=== PATIENT | male | born 1985 | race Hispanic/Latino ===

== ENCOUNTER 2017-06-30 17:48 | Inpatient (IN) | payer SELFPAY ==
[~2017-06-30 17:48] MED LIST: METOCLOPRAMIDE INJ 10MG/2ML VIAL (J2765) IV; NALBUPHINE HCL 10 MG/ML AMP (J2300) IV; NALOXONE INJ 0.4 MG/1 ML VIAL (J2310) IV; ONDANSETRON 4MG/2ML VIAL (J2405) IV
[2017-06-30] MEDS: NS 1,000 ML IV (18:45)
[2017-06-30] MEDS ORDERED: MORPHINE 4 MG/ML 1ML VIAL/SYRINGE (J2270) IV ×2 (18:45→20:15)
[2017-06-30 19:39] LABS: BASO % 0.4 % (0.0-1.0); EOS # 0.2 10^3/uL (0.0-0.50); EOS % 2.1 % (0.0-3.0); HEMATOCRIT 42.7 % (42.0-52.0); HEMOGLOBIN 14.5 g/dl (13.5-17.5); IMMATURE GRANULOCYTE % 0.1 % (0-3.0); LYMPH # 2.1 10^3/uL (1.5-4.5); LYMPH % 27.8 % (24.0-44.0); MEAN CORPUSCULAR VOLUME 82.6 fl (80.0-96.0); MONO # 0.4 10^3/uL (0.0-0.8); NEUTROPHILS # 4.8 10^3/uL (1.8-7.7); NEUTROPHILS % 64.6 % (36.0-66.0); PLATELET COUNT, AUTOMATED 278 10^3/uL (150-450); RED BLOOD COUNT 5.17 10^6/uL (4.30-6.10); RED CELL DISTRIBUTION WIDTH 12.8 % (11.5-14.5); WHITE BLOOD COUNT 7.5 10^3/uL (4.0-10.0)
[2017-06-30 19:51] LABS: INR 0.99; PROTHROMBIN TIME 13.2 SECONDS (12.4-14.5)
[2017-06-30 19:52] LABS: PARTIAL THROMBOPLASTIN TIME 33.7 SECONDS (26.8-37.9)
[2017-06-30] MEDS: ONDANSETRON 4MG/2ML VIAL (J2405) IV (20:06)
[2017-06-30 20:09] LABS: ALBUMIN 3.9 GM/DL (3.2-5.2); ALBUMIN/GLOBULIN RATIO 0.85 (1.00-1.93); ALKALINE PHOSPHATASE 104 U/L (45-117); ALT/SGPT 62 U/L (12-78); AMYLASE 29 U/L (25-115); ANION GAP 7 MEQ/L (8-16); AST/SGOT 37 U/L (7-37); BILIRUBIN,DIRECT 0.3 MG/DL (0.0-0.2); BILIRUBIN,TOTAL 1.4 MG/DL (0.2-1.0); BLOOD UREA NITROGEN 13 MG/DL (7-18); CALCIUM LEVEL 8.8 MG/DL (8.5-10.1); CARBON DIOXIDE LEVEL 26 MEQ/L (21-32); CHLORIDE LEVEL 108 MEQ/L (98-107); CREATININE FOR GFR 0.79 MG/DL (0.70-1.30); GLOMERULAR FILTRATION RATE > 60.0 (>60); GLUCOSE, FASTING 97 MG/DL (70-100); LIPASE 93 U/L (73-393); POTASSIUM SERUM 3.7 MEQ/L (3.5-5.1); SODIUM LEVEL 141 MEQ/L (136-145); TOTAL PROTEIN 8.5 GM/DL (6.4-8.2)
[2017-06-30 20:11] LABS: LACTIC ACID SEPSIS PROTOCOL 0.7 MMOL/L (0.4-2.0)
[2017-06-30] MEDS ORDERED: ONDANSETRON 4MG/2ML VIAL (J2405) IV (20:15)
[2017-06-30] MEDS ORDERED: ACETAMINOPHEN TAB 650MG DOSE (2X325MG) PO (20:15)
[2017-06-30] MEDS: AMPICILLIN SOD/SULBACTAM SOD 3 GM in D5W MINI-BAG PLUS 100 ML IV (20:25)
[2017-06-30] MEDS: LR 1,000 ML IV (21:40)
[2017-06-30] MEDS: KETOROLAC 30 MG/ML VIAL (J1885) IV (22:26)
[2017-07-01] MEDS: AMPICILLIN SOD/SULBACTAM SOD 3 GM in D5W MINI-BAG PLUS 100 ML IV ×4 (00:20→18:20)
[2017-07-01] MEDS: LR 1,000 ML IV ×3 (05:33→21:00)
[2017-07-01] MEDS: KETOROLAC 30 MG/ML VIAL (J1885) IV ×2 (11:16→21:47)
[2017-07-01] MEDS ORDERED: BUPIVACAINE HCL 0.25% 30 ML VIAL As Ordered (17:07)
[2017-07-01] MEDS ORDERED: fentaNYL 100 MCG/2 ML INJECTION (J3010) As Ordered ×2 (18:12→18:53)
[2017-07-01] MEDS ORDERED: MIDAZOLAM INJ 2 MG/2 ML VIAL (J2250) As Ordered (18:12)
[2017-07-01] MEDS ORDERED: PHENYLephrine HCL 500 MCG/5 ML (100MCG/ML) SYRINGE (J2370) As Ordered (19:10)
[2017-07-01] MEDS ORDERED: NEOSTIGMINE 10 MG/10 ML VIAL (J2710) As Ordered (19:33)
[2017-07-01] MEDS ORDERED: ONDANSETRON 4MG/2ML VIAL (J2405) As Ordered (19:33)
[2017-07-01] MEDS ORDERED: GLYCOPYRROLATE INJ 0.2 MG/ML 2 ML VIAL As Ordered (19:33)
[2017-07-01] MEDS ORDERED: PROPOFOL 200 MG/20 ML VIAL As Ordered (20:29)
[2017-07-01] MEDS ORDERED: fentaNYL 100 MCG/2 ML INJECTION (J3010) IV (21:00)
[2017-07-01] MEDS ORDERED: ONDANSETRON 4MG/2ML VIAL (J2405) IV (21:00)
[2017-07-01] MEDS ORDERED: KETOROLAC 30 MG/ML VIAL (J1885) As Ordered (21:33)
[2017-07-01] MEDS ORDERED: PERCOCET 5MG/325MG TAB As Ordered (21:33)
[2017-07-01] MEDS ORDERED: KETOROLAC 30 MG/ML VIAL (J1885) IV (21:45)
[2017-07-01] MEDS: PERCOCET 5MG/325MG TAB PO (22:45)
[2017-07-02] MEDS: AMPICILLIN SOD/SULBACTAM SOD 3 GM in D5W MINI-BAG PLUS 100 ML IV ×2 (00:57→07:00)
[2017-07-02] MEDS: KETOROLAC 30 MG/ML VIAL (J1885) IV (09:08)
[2017-07-02] MEDS: NORCO, ANEXSIA 5/325MG TABLET (HYDROcodone/ACETAMINOPHEN) PO (13:52)
[2017-07-02] MEDS ORDERED: IBUPROFEN 600 MG TAB PO (15:00)
== END 2017-07-02 16:30 | disposition home or self-care (01) | DRG 263 ==
LOC: M ED 17:48 → M ED INP 20:03 → M PED 21:40
PROC: 0FT44ZZ Resection of Gallbladder, Percutaneous Endoscopic Approach (ICD-10-PCS; principal; 2017-07-01 13:30)
DX: K80.00 Calculus of gallbladder with acute cholecystitis without obstruction (principal)